=== PATIENT | female | born 1975 | race Caucasian/White ===

== ENCOUNTER 2016-08-18 03:21 | Emergency (ER) | payer OTHER ==
[2016-08-18] MEDS ORDERED: NS 0.9% 1000 ML* 1,000 ML IV ONE (03:37)
[2016-08-18 05:02] LABS: Hematocrit 32 % (35-47); Hemoglobin 10.9 g/dl (12.0-16.0); Mean Corpuscular HGB Conc 34 g/dl (31-36); Mean Corpuscular Hemoglobin 31 pg (27-31); Mean Corpuscular Volume 89 fL (80-97); Mean Platelet Volume 8 um3 (7.4-10.4); Red Blood Count 3.57 10^6/ul (4.0-5.4); Red Cell Distribution Width 13 % (10.5-15)
[2016-08-18 05:14] LABS: Albumin 3.3 g/dL (3.2-5.2); BUN/Creatinine Ratio 12.2 (8-20); C Reactive Protein 20.63 mg/L (< 5.00); Calcium 9.1 mg/dL (8.6-10.3); EGFR African American 178.1 (>60); EGFR Non-African American 138.5 (>60); Globulin 2.9 g/dL (2-4); Potassium 3.3 mmol/L (3.5-5.0); Total Bilirubin 0.3 mg/dL (0.2-1.0); Total Protein 6.2 g/dL (6.4-8.9)
--- NOTE | 2016-08-18 05:35 | ED ---
frankie Bustillo Timothy, scribed for Brian Toledo MD on 08/18/16 at 0342 . Abdominal Pain/Female - HPI Summary HPI Summary: Payal Carter is a 41 yo female presenting to [facility] with 2/10 intermittent pain in her RLQ since 0900 08/17/16 worsening consistently. She states it is now difficult to walk. She denies any cramping or bleeding. Pt is 18 weeks . She states that pain is worse and better with different positions. She has not self-medicated. Her last [facility] appt was 2 weeks ago. She denies any pertinent MHx. - History of Current Complaint Chief Complaint: EDAbdPain Stated Complaint: RIGHT FLANK PAIN//18 WKS Time Seen by Provider: 08/18/16 03:37 Hx Obtained From: Patient ?: Yes Onset/Duration: Sudden Onset, Lasting Hours, Still Present, Worse Since - now Timing: Intermittent Episode Lasting Severity Initially: Moderate Severity Currently: Moderate Pain Intensity: 2 Pain Scale Used: 0-10 Numeric Location: Discrete At: RLQ Radiates: No Aggravating Factor(s): Other: - position change Alleviating Factor(s): Position Associated Signs and Symptoms: Positive: Negative. Negative: Vaginal Bleeding, Vaginal Discharge, Nausea, Vomiting Allergies/Adverse Reactions: Allergies Allergy/AdvReac Type Severity Reaction Status Date / Time No Known Allergies Allergy Verified 08/18/16 03:28 PMH/Surg Hx/FS Hx/Imm Hx Previously Healthy: Yes Infectious Disease History: No Infectious Disease History: Denies: Traveled Outside the [place] in Last 30 Days - Family History Known Family History: Positive: Cardiac Disease, Hypertension, Other - breast CA Negative: Diabetes - Social History Alcohol Use: None Hx Substance Use: No Substance Use Type: Reports: None Hx Tobacco Use: No Smoking Status (MU): Never Smoked Tobacco Review of Systems Constitutional: Negative Eyes: Negative ENT: Negative Cardiovascular: Negative Respiratory: Negative Positive: Abdominal Pain - RLQ Genitourinary: Negative Musculoskeletal: Negative Skin: Negative Neurological: Negative Psychological: Normal All Other Systems Reviewed And Are Negative: Yes Physical Exam Triage Information Reviewed: Yes Vital Signs On Initial Exam: Initial Vitals Temp Pulse Resp BP Pulse Ox 98.2 F 88 16 101/62 98 08/18/16 03:25 08/18/16 03:25 08/18/16 03:25 08/18/16 03:25 08/18/16 03:25 Vital Signs Reviewed: Yes Appearance: Positive: Well-Appearing, Pain Distress - minmal discomfort Skin: Positive: Warm Head/Face: Positive: Normal Head/Face Inspection Eyes: Positive: TAHIR ENT: Positive: Hearing grossly normal Neck: Positive: Supple Respiratory/Lung Sounds: Positive: Breath Sounds Present Cardiovascular: Positive: RRR Abdomen Description: Positive: No Organomegaly, Soft, Other: - mild tender over rt inguinal ligament Bowel Sounds: Positive: Present Musculoskeletal: Positive: Strength/ROM Intact Neurological: Positive: Sensory/Motor Intact, Alert, Oriented to Person Place, Time Psychiatric: Positive: Affect/Mood Appropriate Diagnostics - Vital Signs Vital Signs Temp Pulse Resp BP Pulse Ox 08/18/16 03:25 98.2 F 88 16 101/62 98 - Laboratory Lab Results: Lab Results 08/18/16 08/18/16 Range/Units 04:05 04:05 WBC 11.0 H (3.5-10.8) 10^3/ul RBC 3.57 L (4.0-5.4) 10^6/ul Hgb 10.9 L (12.0-16.0) g/dl Hct 32 L (35-47) % MCV 89 (80-97) fL MCH 31 (27-31) pg MCHC 34 (31-36) g/dl RDW 13 (10.5-15) % Plt Count 190 (150-450) 10^3/ul MPV 8 (7.4-10.4) um3 Neut % (Auto) 80.9 (38-83) % Lymph % (Auto) 11.7 L (25-47) % Callaway % (Auto) 5.6 (1-9) % Eos % (Auto) 1.4 (0-6) % Baso % (Auto) 0.4 (0-2) % Absolute Neuts (auto) 8.9 H (1.5-7.7) 10^3/ul Absolute Lymphs (auto) 1.3 (1.0-4.8) 10^3/ul Absolute Monos (auto) 0.6 (0-0.8) 10^3/ul Absolute Eos (auto) 0.1 (0-0.6) 10^3/ul Absolute Basos (auto) 0 (0-0.2) 10^3/ul Absolute Nucleated RBC 0 10^3/ul Nucleated RBC % 0 Sodium 133 (133-145) mmol/L Potassium 3.3 L (3.5-5.0) mmol/L Chloride 103 (101-111) mmol/L Carbon Dioxide 24 (22-32) mmol/L Anion Gap 6 (2-11) mmol/L BUN 6 (6-24) mg/dL Creatinine 0.49 L (0.51-0.95) mg/dL Est GFR ( Amer) 178.1 (>60) Est GFR (Non-Af Amer) 138.5 (>60) BUN/Creatinine Ratio 12.2 (8-20) Glucose 87 (70-100) mg/dL Calcium 9.1 (8.6-10.3) mg/dL Total Bilirubin 0.30 (0.2-1.0) mg/dL AST 23 (13-39) U/L ALT 27 (7-52) U/L Alkaline Phosphatase 41 (34-104) U/L C-Reactive Protein 20.63 H (< 5.00) mg/L Total Protein 6.2 L (6.4-8.9) g/dL Albumin 3.3 (3.2-5.2) g/dL Globulin 2.9 (2-4) g/dL Albumin/Globulin Ratio 1.1 (1-3) Result Diagrams: 08/18/16 04:05 08/18/16 04:05 Lab Statement: Any lab studies that have been ordered have been reviewed, and results considered in the medical decision making process. Re-Evaluation - Re-Evaluation First Eval Re-Evaluation Time: 06:22 Change: Improved Comment: Informed Pt of results Second Eval Re-Evaluation Time: 06:27 Change: Improved Comment: Informed Pt of Dr. Gann's recommendations, Pt is agreeable to be discharged. Abdominal Pain Fem Course/Dx - Course Course Of Treatment: Payal Carter is a 41 yo female presenting to [facility] with RLQ pain since yesterday am. After clinical examination and review of her labwork, as well as discussion with Dr. Gann, she will be discharged home with instructions to follow up with [facility] this week. - Diagnoses Provider Diagnoses: Round ligament pain - Provider Notifications Discussed Care Of Patient With: 0624 - Dr. Gann ([facility]) - Discussed care of Pt, recommends discharge with follow up this week. Discharge - Discharge Plan Condition: Stable Disposition: HOME Patient Education Materials: (ED) Referrals: [facility] NOELLE Herrera [Primary Care Provider] - [facility] [Provider Group] - 2 Days Additional Instructions: Please follow up with your [facility] this week regarding your visit to the emergency department today. Return to the emergency department with any new or recurring symptoms. The documentation as recorded by the frankie leary Timothy accurately reflects the service I personally performed and the decisions made by me, Brian Toledo MD.
[2016-08-18 06:18] LABS: Urine Bacteria Absent (Absent); Urine Bilirubin Negative (Negative); Urine Glucose Negative (Negative); Urine Nitrite Negative (Negative)
[2016-08-18 06:55] VITALS: BP 97/59
== END 2016-08-18 06:55 | disposition home or self-care (01) ==
LOC: ED 03:21
DX: R10.2 Pelvic and perineal pain (principal); R10.31 Right lower quadrant pain
CPT/HCPCS: 36415; 80053; 81003; 81015; 85025; 86140; 87086; 96360; 99283

== ENCOUNTER 2017-01-14 19:00 | Inpatient (IN) | payer OTHER ==
[2017-01-14] MEDS ORDERED: Dinoprostone* 10 MG VAG.SUPP VAGINAL ONE (20:13)
[2017-01-15] MEDS ORDERED: Calcium Carbonate CHEW TAB* 500 MG (TUMS) PO ONE (05:06)
[2017-01-15] MEDS ORDERED: Calcium Carbonate CHEW TAB* 500 MG (TUMS) ONE (05:41)
[2017-01-15] MEDS ORDERED: Dinoprostone* 10 MG VAG.SUPP VAGINAL ONE (08:42)
[2017-01-16] MEDS: Calcium Carbonate CHEW TAB* 500 MG (TUMS) PO PRN ×2 (00:25→21:21)
[2017-01-16] MEDS ORDERED: Misoprostol TAB* 100 MCG VAGINAL ONE (08:38)
[2017-01-16 13:55] LABS: Hematocrit 35 % (35-47); Hemoglobin 11.9 g/dl (12.0-16.0); Mean Corpuscular HGB Conc 34 g/dl (31-36); Mean Corpuscular Hemoglobin 32 pg (27-31); Mean Corpuscular Volume 92 fL (80-97); Mean Platelet Volume 9 um3 (7.4-10.4); Red Blood Count 3.73 10^6/ul (4.0-5.4); Red Cell Distribution Width 16 % (10.5-15); White Blood Count 9.4 10^3/ul (3.5-10.8)
[2017-01-16] MEDS ORDERED: Lidocaine 1% MPF* 2 ML VIAL ONE (13:55)
[2017-01-16] MEDS ORDERED: Oxytocin in LR* 20 UNITS/1,000 ML BAG IVPB SCH (14:00)
[2017-01-17] MEDS: Calcium Carbonate CHEW TAB* 500 MG (TUMS) PO PRN (01:34)
[2017-01-17] MEDS ORDERED: OBEPIDURAL* 250 ML ONE (08:57)
[2017-01-17] MEDS ORDERED: Phenylephrine IV* 40 MCG/ML 10 ML SYRINGE ONE (09:02)
[2017-01-17] MEDS ORDERED: Sodium Citrate/Citric Acid* 15 ML UDC PO PRN (09:16)
[2017-01-17] MEDS ORDERED: Famotidine TAB* 20 MG PO PRN (09:16)
[2017-01-17] MEDS ORDERED: EPHEDrine (Pressors)* 50 MG/ML VIAL IV PUSH PRN (09:16)
[2017-01-17] MEDS ORDERED: Phenylephrine IV* 40 MCG/ML 10 ML SYRINGE IV PUSH PRN (09:16)
[2017-01-17] MEDS ORDERED: OBEPIDURAL* 250 ML EPIDURAL SCH (10:00)
[2017-01-17] MEDS ORDERED: Sodium Citrate/Citric Acid* 15 ML UDC ONE (13:37)
[2017-01-17] MEDS ORDERED: ceFOXitin 2 GM IVPREMIX* 4 GM/100 ML BAG ONE (13:38)
[2017-01-17] MEDS ORDERED: fentaNYL* 50 MCG/ML 2 ML VIAL (100 MCG VIAL) ONE (14:00)
[2017-01-17] MEDS ORDERED: Morphine PF AMP (0.5MG/ML)* 5 MG/10 ML AMP ONE (14:00)
[2017-01-17] MEDS ORDERED: OXYTOCIN* 10 UNITS/ML 1 ML VIAL ONE ×2 (14:40→14:57)
[2017-01-17] MEDS ORDERED: Ondansetron INJ* 2 MG/ML VIAL ONE (14:40)
[2017-01-17] MEDS ORDERED: DiMENhydriNATE IV* 50 MG/ML VIAL IV PUSH PRN (14:59)
[2017-01-17] MEDS ORDERED: fentaNYL* 50 MCG/ML 2 ML VIAL (100 MCG VIAL) IV PRN (14:59)
[2017-01-17] MEDS ORDERED: Nalbuphine* 20 MG/ML 1 ML VIAL IV PRN (15:01)
[2017-01-17] MEDS ORDERED: Ondansetron INJ* 2 MG/ML VIAL IV PRN (15:01)
[2017-01-17] MEDS ORDERED: oxyCODONE/Acetamin 5/325 MG* TAB PO PRN (15:01)
[2017-01-17] MEDS ORDERED: Naloxone* 0.4 MG/ML 1 ML VIAL IV PRN (15:01)
[2017-01-17] MEDS ORDERED: Naloxone* 2 MG in NS 0.9% 250 ML* 250 ML IV PRN (15:01)
[2017-01-17] MEDS ORDERED: Ketorolac INJ* 30 MG/ML 1 ML VIAL ONE (15:17)
[2017-01-17] MEDS ORDERED: ceFOXitin 2 GM IVPREMIX* 2 GM/50 ML BAG IVPB ONE (15:23)
[2017-01-17] MEDS ORDERED: Zolpidem TAB* 5 MG PO PRN (15:24)
[2017-01-17] MEDS ORDERED: Glycerin ADULT SUPP PR PRN (15:24)
[2017-01-17] MEDS ORDERED: Dibucaine 1% 28.35 GM TUBE PR PRN (15:24)
[2017-01-17] MEDS ORDERED: Witch Hazel PAD* JAR TOPICAL PRN (15:24)
[2017-01-17] MEDS ORDERED: Chloroprocaine 3%* 20 ML VIAL ONE (19:53)
[2017-01-17] MEDS: Docusate CAP* 100 MG PO SCH (21:43)
[2017-01-17] MEDS: Simethicone CHEW TAB* 80 MG PO SCH (21:43)
[2017-01-17] MEDS: Ketorolac INJ* 30 MG/ML 1 ML VIAL IV PRN (21:43)
[2017-01-18] MEDS: Ketorolac INJ* 30 MG/ML 1 ML VIAL IV PRN (03:53)
[2017-01-18 06:46] LABS: Hematocrit 27 % (35-47); Hemoglobin 9.3 g/dl (12.0-16.0); Mean Corpuscular HGB Conc 34 g/dl (31-36); Mean Corpuscular Hemoglobin 32 pg (27-31); Mean Corpuscular Volume 93 fL (80-97); Mean Platelet Volume 8 um3 (7.4-10.4); Red Blood Count 2.92 10^6/ul (4.0-5.4); Red Cell Distribution Width 15 % (10.5-15); White Blood Count 11.6 10^3/ul (3.5-10.8)
[2017-01-18] MEDS ORDERED: oxyCODONE/Acetamin 5/325 MG* TAB PO PRN ×2 (07:00)
[2017-01-18] MEDS: Ibuprofen TAB* 600 MG PO PRN ×3 (10:01→22:45)
[2017-01-18] MEDS: Docusate CAP* 100 MG PO SCH ×3 (10:01→20:32)
[2017-01-18] MEDS: Simethicone CHEW TAB* 80 MG PO SCH ×4 (10:01→20:32)
[2017-01-18] MEDS: Ferrous Gluconate TAB* 324 MG TAB PO SCH ×2 (14:43→20:31)
[2017-01-19] MEDS: Ibuprofen TAB* 600 MG PO PRN ×4 (04:54→23:23)
[2017-01-19] MEDS: Docusate CAP* 100 MG PO SCH ×3 (11:00→22:02)
[2017-01-19] MEDS: Ferrous Gluconate TAB* 324 MG TAB PO SCH ×2 (11:00→21:54)
[2017-01-19] MEDS: Simethicone CHEW TAB* 80 MG PO SCH ×5 (11:00→22:01)
--- NOTE | 2017-01-19 17:01 | PTEDU ---
Patient Name: JAME GARCIA GARCIAJAME selected video: Never Ever Shake a Baby to view on 01/19/2017 at 5:00:38 PM [id number]
--- NOTE | 2017-01-19 17:04 | PTEDU ---
Patient Name: JAME GARCIA JAME GARCIA selected video: BBOB: Nurturing Your Gorgeous \T\Growing Baby by to view o n 01/19/2017 at 5:03:32 PM from [id number]
--- NOTE | 2017-01-19 17:07 | PTEDU ---
Patient Name: JAME GARCIA JAME GARCIA selected video: Follow Me Mum: The [facility] to Successful to view on 01/19/2017 at 5:05:58 PM from [email or web address]
[2017-01-20] MEDS: Acetaminophen TAB* 325 MG PO PRN ×2 (02:11→09:26)
[2017-01-20] MEDS: Ibuprofen TAB* 600 MG PO PRN (06:51)
[2017-01-20 08:11] VITALS: BP 110/60
[2017-01-20] MEDS: Docusate CAP* 100 MG PO SCH (09:24)
[2017-01-20] MEDS: Simethicone CHEW TAB* 80 MG PO SCH (09:26)
[2017-01-20] MEDS: Ferrous Gluconate TAB* 324 MG TAB PO SCH (09:26)
--- NOTE | 2017-01-22 00:08 | OP ---
CC: Mayra Houser, [employer], [employer] * DATE OF OPERATION: 01/17/17 - ROOM #[facility]-114 DATE OF : 73 SURGEON: Rome Alvarado MD. POST PARTUM NURSE: Mayra Houser, [employer]. ANESTHESIOLOGIST: Roberto Loza MD ANESTHESIA: Epidural. PRE-OP DIAGNOSIS: Intrauterine at term with arrest in the second stage of labor, arrest of descent. POST-OP DIAGNOSIS: Intrauterine at term with arrest in the second stage of labor, arrest of descent. OPERATIVE PROCEDURE: Primary low transverse section. ESTIMATED BLOOD LOSS: 700 cc. SPECIMEN: Sent to pathology was cord blood. FLUIDS: She received 2500 cc of IV crystalloid fluid. URINE OUTPUT: Clear. FINDINGS: Delivery of a viable female with Apgars of 9 and 9 weighing 7 pounds 13 ounces. The placenta was grossly intact with a 3-vessel cord noted. 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 The tubes, ovaries, bowel, and bladder were all within normal limits and there were no complications. DESCRIPTION OF PROCEDURE: The patient was taken to the operating room where she was identified. She was placed on the operating table, where an epidural anesthetic was obtained without difficulty. She was then placed in the supine position with a leftward tilt, prepped and draped in a normal sterile fashion. A Pfannenstiel skin incision was made with a knife and carried through to the underlying layer of fascia. The fascia was nicked in the midline and extended laterally with curved Fontanez scissors. The fascia was then grasped superiorly and inferiorly with Mavis clamps and dissected off sharply from the rectus muscle. The rectus muscle was in the midline bluntly. The peritoneum was identified, grasped with pickups, and entered sharply with Metzenbaum scissors and extended superiorly and inferiorly sharply. A bladder blade was inserted into the patient's abdomen. A bladder flap was created using Metzenbaum scissors over which the bladder blade was then reinserted. A low-transverse skin incision was made with a knife and extended laterally with bandage scissors. The infant's head was then grasped and delivered atraumatically. The nose and mouth were suctioned. The rest of the 's body was then delivered. The cord was clamped and cut, and the infant was then handed off to awaiting yarn cleaner. Cord bloods were obtained. The placenta was then removed manually. The uterus was then exteriorized and cleared of all clot and debris using moist laparotomy sponges. The uterine incision was then closed using 0 Polysorb suture in a running locked fashion with a second imbricating layer of 0 Polysorb suture and good hemostasis noted. At this point, the gutters were then cleared of all clots and debris using moist laparotomy sponges. All the sponges and instruments were then removed from the patient's abdomen. The peritoneum was then closed using 3-0 Polysorb suture in a running fashion. The fascia was closed using 0 Polysorb suture in a running fashion and the skin was closed using a 4-0 Monocryl subcuticular stitch. The patient tolerated the procedure well. Sponge, lap, needle counts were correct x2. She was then transferred to the recovery room area in stable condition. [id number]/[facility] #: [id number] PAMELLA
== END 2017-01-20 11:55 | disposition home or self-care (01) | DRG 766 ==
LOC: MCHOBOUT 19:00 → MCHOB 20:40
PROVIDERS: ADMIT Midwife; ATTEND Obstetrics & Gynecology
PROC: 3E0P7GC Introduction of Other Therapeutic Substance into Female Reproductive, Via Natural or Artificial Opening (ICD-10-PCS; 2017-01-14)
PROC: 4A1HXCZ Monitoring of Products of Conception, Cardiac Rate, External Approach (ICD-10-PCS; 2017-01-14)
PROC: 10907ZC Drainage of Amniotic Fluid, Therapeutic from Products of Conception, Via Natural or Artificial Opening (ICD-10-PCS; 2017-01-17)
PROC: 10D00Z1 Extraction of Products of Conception, Low, Open Approach (ICD-10-PCS; principal; 2017-01-17 14:09)
DX: O99.824 Streptococcus B carrier state complicating childbirth (principal); D25.2 Subserosal leiomyoma of uterus; O48.0 Post-term pregnancy; O62.1 Secondary uterine inertia; O34.13 Maternal care for benign tumor of corpus uteri, third trimester; Z3A.40 40 weeks gestation of pregnancy; Z37.0 Single live birth; Z82.3 Family history of stroke; Z82.49 Family history of ischemic heart disease and other diseases of the circulatory system
CPT/HCPCS: 36415; 85025; 86850; 86900; 86901; A9270-GY; J0694; J1885; J2400; J2405; J2590; J3010; S0191